=== PATIENT | male | born 1970 | race Caucasian/White ===

== ENCOUNTER 2017-09-24 00:41 | Emergency (ER) | payer OTHER ==
[~2017-09-24] VITALS: Ht 190.5 cm; Wt 98.0 kg
[2017-09-24] MEDS ORDERED: KETOROLAC TROMETHAMINE 60 MG/2 ML VIAL IM ONE (03:30)
[2017-09-24] MEDS ORDERED: OxyCODONE HCL/ACETAMINOPHEN 5-325 MG TABLET PO ONE (03:30)
[2017-09-24] MEDS ORDERED: LIDOCAINE HCL 1% 10 ML VIAL INJ ONE (03:30)
[2017-09-24 04:10] VITALS: BP 127/75
== END 2017-09-24 04:13 | disposition home or self-care (01) ==
LOC: EMS 00:45
DX: S63.125A Dislocation of interphalangeal joint of left thumb, initial encounter (principal); W22.01XA Walked into wall, initial encounter; Y93.89 Activity, other specified; Y92.89 Other specified places as the place of occurrence of the external cause; Y99.8 Other external cause status
CPT/HCPCS: 26770; 73130; 96372; 99284; J1885; J3490